=== PATIENT | male | born 1975 | race Caucasian/White ===

== ENCOUNTER 2022-05-25 13:45 | Outpatient (CLI) | payer SELFPAY | END 2022-05-25 13:46 | disposition home or self-care (01) | LOC: LKVREF 13:48 | PROVIDERS: PCP Physician Assistant Medical; Visit Provider Family Medicine | DX: R06.00 Dyspnea, unspecified (principal); E66.01 Morbid (severe) obesity due to excess calories; E78.5 Hyperlipidemia, unspecified; I10 Essential (primary) hypertension; E11.9 Type 2 diabetes mellitus without complications | CPT/HCPCS: 83880 ==

== ENCOUNTER 2022-09-12 12:52 | Outpatient (CLI) | payer OTHER, SELFPAY | END 2022-09-12 12:53 | disposition home or self-care (01) | LOC: NFLDREF 09-13 08:13 | PROVIDERS: PCP Physician Assistant Medical; Referring Provider Physician Assistant Medical; Visit Provider Physician Assistant Medical | DX: E11.9 Type 2 diabetes mellitus without complications (principal); E55.9 Vitamin D deficiency, unspecified; I10 Essential (primary) hypertension; E78.5 Hyperlipidemia, unspecified; F41.9 Anxiety disorder, unspecified | CPT/HCPCS: 80053; 80061; 82043; 82306; 82570 ==

== ENCOUNTER 2023-08-01 14:02 | Outpatient (CLI) | payer OTHER, SELFPAY | END 2023-08-01 14:03 | disposition home or self-care (01) | LOC: WOUND 14:03 | PROVIDERS: PCP Physician Assistant Medical; Visit Provider Surgery | DX: S91.301A Unspecified open wound, right foot, initial encounter (principal); W25.XXXA Contact with sharp glass, initial encounter; I87.303 Chronic venous hypertension (idiopathic) without complications of bilateral lower extremity; E08.40 Diabetes mellitus due to underlying condition with diabetic neuropathy, unspecified; E66.01 Morbid (severe) obesity due to excess calories; Z68.43 Body mass index [BMI] 50.0-59.9, adult; Z72.0 Tobacco use; Z79.84 Long term (current) use of oral hypoglycemic drugs | CPT/HCPCS: 97597 ==

== ENCOUNTER 2023-08-01 15:54 | Outpatient (CLI) | payer OTHER, SELFPAY ==
--- NOTE | 2023-08-01 16:00 | CRLHL7_ITS ---
For Patients: As a result of the Century Cures Act, medical imaging exams and procedure reports are released immediately into your electronic medical record. You may view this report before your referring provider. If you have questions, please contact your health care provider. Indication: Diabetic foot ulcer. Assess for retained foreign body. Technique: AP and lateral views. Comparison: None. Findings/Impression: There is swelling of the great toe soft tissues. There is an ununited fracture of the great toe distal phalanx. There are findings suspicious for ulceration of the plantar soft tissues with an amorphous radiodensity measuring 8 mm x 2.5 mm at the suspected ulcer site, seen on the lateral exam, which may represent a nonmetallic foreign body. There are calcaneal spurs and ossifications within the distal Achilles tendon and plantar fascia. The right foot soft tissues are swollen. Dictated by Sj Rey MD @ 08/04/2023 8:02:17 AM (Electronically Signed)
== END 2023-08-01 15:55 | disposition home or self-care (01) ==
LOC: RAD 15:54
PROVIDERS: PCP Physician Assistant Medical; Visit Provider Surgery
DX: E11.621 Type 2 diabetes mellitus with foot ulcer (principal)
CPT/HCPCS: 73620; 97597

== ENCOUNTER 2023-08-08 15:04 | Outpatient (CLI) | payer OTHER, SELFPAY | END 2023-08-08 15:05 | disposition home or self-care (01) | LOC: WOUND 15:32 | PROVIDERS: PCP Physician Assistant Medical; Visit Provider Surgery | DX: S91.301A Unspecified open wound, right foot, initial encounter (principal); I87.303 Chronic venous hypertension (idiopathic) without complications of bilateral lower extremity; E08.40 Diabetes mellitus due to underlying condition with diabetic neuropathy, unspecified; Z72.0 Tobacco use; Z79.84 Long term (current) use of oral hypoglycemic drugs | CPT/HCPCS: 11042 ==

== ENCOUNTER 2023-08-17 09:24 | Outpatient (CLI) | payer OTHER, SELFPAY | END 2023-08-17 09:25 | disposition home or self-care (01) | LOC: WOUND 09:24 | PROVIDERS: PCP Physician Assistant Medical; Visit Provider Nurse Practitioner Family | DX: E11.621 Type 2 diabetes mellitus with foot ulcer (principal); E11.40 Type 2 diabetes mellitus with diabetic neuropathy, unspecified; L97.422 Non-pressure chronic ulcer of left heel and midfoot with fat layer exposed; L97.412 Non-pressure chronic ulcer of right heel and midfoot with fat layer exposed; Z79.84 Long term (current) use of oral hypoglycemic drugs; Z72.0 Tobacco use; E66.01 Morbid (severe) obesity due to excess calories; Z68.43 Body mass index [BMI] 50.0-59.9, adult | CPT/HCPCS: 11042; 87070; 87186; G0463 ==

== ENCOUNTER 2023-08-22 14:01 | Outpatient (CLI) | payer OTHER, SELFPAY | END 2023-08-22 14:02 | disposition home or self-care (01) | LOC: WOUND 14:01 | PROVIDERS: PCP Physician Assistant Medical; Visit Provider Surgery | DX: I87.313 Chronic venous hypertension (idiopathic) with ulcer of bilateral lower extremity (principal); E08.40 Diabetes mellitus due to underlying condition with diabetic neuropathy, unspecified; L97.422 Non-pressure chronic ulcer of left heel and midfoot with fat layer exposed; L97.415 Non-pressure chronic ulcer of right heel and midfoot with muscle involvement without evidence of necrosis; Z72.0 Tobacco use; Z79.84 Long term (current) use of oral hypoglycemic drugs | CPT/HCPCS: 11042; 97597; G0463 ==

== ENCOUNTER 2023-08-29 14:01 | Outpatient (CLI) | payer OTHER, SELFPAY | END 2023-08-29 14:02 | disposition home or self-care (01) | LOC: WOUND 14:01 | PROVIDERS: PCP Physician Assistant Medical; Visit Provider Surgery | DX: E11.621 Type 2 diabetes mellitus with foot ulcer (principal); L97.422 Non-pressure chronic ulcer of left heel and midfoot with fat layer exposed; L97.412 Non-pressure chronic ulcer of right heel and midfoot with fat layer exposed; Z79.84 Long term (current) use of oral hypoglycemic drugs | CPT/HCPCS: 11042; 97597 ==

== ENCOUNTER 2023-09-05 14:16 | Outpatient (CLI) | payer OTHER, SELFPAY | END 2023-09-05 14:17 | disposition home or self-care (01) | LOC: WOUND 14:16 | PROVIDERS: PCP Physician Assistant Medical; Visit Provider Surgery | DX: I87.311 Chronic venous hypertension (idiopathic) with ulcer of right lower extremity (principal); E08.40 Diabetes mellitus due to underlying condition with diabetic neuropathy, unspecified; L97.412 Non-pressure chronic ulcer of right heel and midfoot with fat layer exposed; Z72.0 Tobacco use; Z79.84 Long term (current) use of oral hypoglycemic drugs | CPT/HCPCS: 11042 ==

== ENCOUNTER 2023-09-19 13:24 | Outpatient (CLI) | payer OTHER, SELFPAY ==
--- NOTE | 2023-09-19 14:10 | CRLHL7_ITS ---
For Patients: As a result of the Century Cures Act, medical imaging exams and procedure reports are released immediately into your electronic medical record. You may view this report before your referring provider. If you have questions, please contact your health care provider. 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 Findings: Bones: Chronic appearing nonunited fracture of the 1st distal phalanx tuft. Joint spaces: Mild/moderate forefoot arthrosis. Soft tissues: 10 millimeter curvilinear radiodensity projecting over the heel pad at the level of the posterior calcaneus, favored to reflect soft tissue calcification, but foreign body not excluded. Degenerative mineralization of the plantar fascia and distal Achilles tendon. Large enthesophyte on the posterior calcaneus at the Achilles tendon insertion with thickening of the distal Achilles tendon shadow. Impression: 1. 10 millimeter curvilinear density projecting over the heel pad at the level of the posterior calcaneus, favored to reflect soft tissue calcification, but foreign body not entirely excluded. No findings of nearby osteomyelitis. 2. Chronic appearing ununited fracture of the tuft of the 1st distal phalanx. 3. Degenerative changes of the plantar fascia and distal Achilles tendon. Dictated by Edward Sanders MD @ 09/21/2023 5:26:04 AM (Electronically Signed)
== END 2023-09-19 13:25 | disposition home or self-care (01) ==
PROVIDERS: PCP Physician Assistant Medical; Visit Provider Surgery
DX: E11.621 Type 2 diabetes mellitus with foot ulcer (principal); L97.412 Non-pressure chronic ulcer of right heel and midfoot with fat layer exposed; L97.428 Non-pressure chronic ulcer of left heel and midfoot with other specified severity; Z79.84 Long term (current) use of oral hypoglycemic drugs; Z72.0 Tobacco use
CPT/HCPCS: 11042; 73630

== ENCOUNTER 2023-09-26 14:13 | Outpatient (CLI) | payer OTHER, SELFPAY | END 2023-09-26 14:14 | disposition home or self-care (01) | LOC: WOUND 14:13 | PROVIDERS: PCP Physician Assistant Medical; Visit Provider Surgery | DX: E11.621 Type 2 diabetes mellitus with foot ulcer (principal); L97.412 Non-pressure chronic ulcer of right heel and midfoot with fat layer exposed; Z79.84 Long term (current) use of oral hypoglycemic drugs; Z72.0 Tobacco use | CPT/HCPCS: 97597 ==

== ENCOUNTER 2023-10-25 14:15 | Outpatient (CLI) | payer OTHER, SELFPAY | END 2023-10-25 14:16 | disposition home or self-care (01) | LOC: WOUND 14:15 | PROVIDERS: PCP Physician Assistant Medical; Visit Provider Nurse Practitioner Family | DX: E11.621 Type 2 diabetes mellitus with foot ulcer (principal); L97.418 Non-pressure chronic ulcer of right heel and midfoot with other specified severity; Z79.85 Long-term (current) use of injectable non-insulin antidiabetic drugs | CPT/HCPCS: 11042 ==

== ENCOUNTER 2023-11-14 15:50 | Outpatient (CLI) | payer OTHER, SELFPAY | END 2023-11-14 15:51 | disposition home or self-care (01) | LOC: WOUND 15:50 | PROVIDERS: PCP Physician Assistant Medical; Visit Provider Surgery | DX: E11.621 Type 2 diabetes mellitus with foot ulcer (principal); L97.412 Non-pressure chronic ulcer of right heel and midfoot with fat layer exposed; Z79.84 Long term (current) use of oral hypoglycemic drugs | CPT/HCPCS: 97597 ==